=== PATIENT | male | born 1935 | race African-American/Black ===

== ENCOUNTER 2023-07-10 12:47 | Inpatient (IN) | payer MEDICARE ==
[~2023-07-10] VITALS: Ht 180.3 cm; Wt 83.0 kg
[2023-07-10 13:40] LABS: BASOPHILS % 0.8 % (0.0-2.0); EOSINOPHILS % 3.1 % (0.0-5.0); HEMATOCRIT. 39.9 % (42.0-52.0); HEMOGLOBIN. 13.5 g/dL (14.0-18.0); LYMPHOCYTES % 16.7 % (20.0-50.0); MEAN CORPUSCULAR HEMOGLOBIN 31.9 pg (28.0-32.0); MEAN CORPUSCULAR HGB CONC 33.8 g/dL (31.0-37.0); MEAN CORPUSCULAR VOLUME 94.4 fL (80.0-94.0); MEAN PLATELET VOLUME 7.2 fl (7.4-10.4); MONOCYTES % 6.3 % (2.0-8.0); NEUTROPHILS % 73.1 % (40.0-76.0); PLATELET 264 x1000/uL (130-400); RED BLOOD CELL COUNT 4.22 mill/uL (4.7-6.1); RED CELL DISTRIBUTION WIDTH 14.2 % (11.6-14.6); WHITE BLOOD COUNT 4.7 x1000/uL (4.5-11.0)
[2023-07-10 13:55] LABS: PROTHROMBIN TIME 11.4 sec (9.6-11.0)
[2023-07-10 14:06] LABS: ALANINE AMINOTRANSFERASE 17 IU/L (10-49); ALBUMIN 4.3 g/dL (3.2-4.8); ASPARTATE AMINOTRANSFERASE 25 IU/L (<34); BILIRUBIN TOTAL 0.4 mg/dL (0.1-1.0); CALCIUM 9.1 mg/dL (8.7-10.4); CARBON DIOXIDE 26 mEq/L (21-32); CHLORIDE 107 mEq/L (98-107); CREATININE 0.9 mg/dL (0.6-1.3); GLUCOSE 119 mg/dL (70-105); POTASSIUM 3.5 mEq/L (3.5-5.1); PROTEIN TOTAL 7.6 g/dL (6.0-8.3); SODIUM 139 mEq/L (136-145); TROPONIN I HIGH SENSITIVITY 12 ng/L (3.0-53); UREA NITROGEN BLOOD 20 mg/dL (9-23)
[2023-07-10 16:00] VITALS: BP 146/75; PULSE 72; RESP 20; TEMP 97.4
[2023-07-10 16:23] LABS: TROPONIN I HIGH SENSITIVITY 14 ng/L (3.0-53)
[2023-07-10 17:22] VITALS: BP 144/81; PULSE 75; RESP 16; TEMP 97.9
[2023-07-10] MEDS ORDERED: HYDR25TA PO (17:49)
[2023-07-10] MEDS ORDERED: PHEN100C4 PO (17:49)
[2023-07-10] MEDS ORDERED: NIFE90TA60 PO (17:49)
[2023-07-10 20:00] VITALS: BP 145/78; PULSE 73; RESP 19; TEMP 97.9
[2023-07-10] MEDS ORDERED: ACETAMINOPHEN 325MG TABLET PO PRN (20:30)
[2023-07-10] MEDS ORDERED: IPRATROPIUM/ALBUTEROL 0.5-3(2.5)MG/3ML NEB HHN PRN (20:30)
[2023-07-10] MEDS ORDERED: HYDROCODONE/ACETAMINOPHEN 5/325MG TABLET PO PRN (20:30)
[2023-07-10] MEDS ORDERED: DOCUSATE SODIUM 100MG CAPSULE PO PRN (20:30)
[2023-07-10] MEDS ORDERED: ONDANSETRON HCL 4MG/2ML INJ IV PRN (20:30)
[2023-07-10] MEDS ORDERED: PHEN100C12 PO (20:37)
[2023-07-10] MEDS ORDERED: NALOXONE HCL 0.4MG/ML VIAL IV PRN (20:45)
[2023-07-10] MEDS: ENOXAPARIN 40MG/0.4ML SYR SUBCUT SCH (22:02)
[2023-07-10 23:57] LABS: CREATINE KINASE MB FRACTION 3.4 ng/mL (0.5-3.6)
[2023-07-11] VITALS: BP 152/83; PULSE 76; RESP 18; TEMP 97.9
[2023-07-11 04:00] VITALS: BP 147/78; PULSE 75; RESP 19; TEMP 98.2
[2023-07-11 08:00] LABS: CREATINE KINASE MB FRACTION 2.4 ng/mL (0.5-3.6)
[2023-07-11] MEDS: PHENYTOIN SODIUM EXTENDED 100MG CAPSULE PO SCH (08:27)
[2023-07-11] MEDS: HYDROCHLOROTHIAZIDE 25MG TABLET PO SCH (08:27)
[2023-07-11] MEDS: NIFEDIPINE XL 90MG TAB PO SCH (08:27)
[2023-07-11 08:34] VITALS: BP 146/81; PULSE 77; RESP 19; TEMP 98.4
[2023-07-11] MEDS ORDERED: PHENYTOIN SODIUM EXTENDED 100MG CAPSULE PO SCH (09:00)
[2023-07-11] MEDS: DEXAMETHASONE 4MG/ML 1ML VIAL IV SCH (12:00)
[2023-07-11 12:24] VITALS: BP 122/67; PULSE 70; RESP 18; TEMP 98.6
[2023-07-11 15:49] VITALS: BP 124/68; PULSE 86; RESP 20; TEMP 98.3
[2023-07-11 16:19] LABS: BASOPHILS % 1.2 % (0.0-2.0); HEMATOCRIT. 37.5 % (42.0-52.0); HEMOGLOBIN. 12.9 g/dL (14.0-18.0); LYMPHOCYTES % 21.2 % (20.0-50.0); MEAN CORPUSCULAR HEMOGLOBIN 32.3 pg (28.0-32.0); MEAN CORPUSCULAR HGB CONC 34.5 g/dL (31.0-37.0); MEAN CORPUSCULAR VOLUME 93.7 fL (80.0-94.0); MEAN PLATELET VOLUME 7.6 fl (7.4-10.4); NEUTROPHILS % 67.6 % (40.0-76.0); PLATELET 258 x1000/uL (130-400); RED CELL DISTRIBUTION WIDTH 14.3 % (11.6-14.6); WHITE BLOOD COUNT 3.4 x1000/uL (4.5-11.0)
[2023-07-11 16:27] LABS: ALANINE AMINOTRANSFERASE 14 IU/L (10-49); ALBUMIN 3.9 g/dL (3.2-4.8); ASPARTATE AMINOTRANSFERASE 20 IU/L (<34); BILIRUBIN TOTAL 0.3 mg/dL (0.1-1.0); CALCIUM 8.7 mg/dL (8.7-10.4); CARBON DIOXIDE 24 mEq/L (21-32); CHLORIDE 105 mEq/L (98-107); CHOLESTEROL 185 mg/dL (<200); CREATININE 0.9 mg/dL (0.6-1.3); GLUCOSE 119 mg/dL (70-105); HDL CHOLESTEROL 53 mg/dL (>55); LDL CHOLESTEROL 119 mg/dL (5-100); POTASSIUM 3.5 mEq/L (3.5-5.1); SODIUM 139 mEq/L (136-145); TRIGLYCERIDE 87 mg/dL (0-150); UREA NITROGEN BLOOD 18 mg/dL (9-23)
[2023-07-11 20:00] VITALS: BP 134/68; PULSE 79; RESP 18; TEMP 98.2
[2023-07-11] MEDS: ATORVASTATIN CALCIUM 40MG TABLET PO SCH (20:44)
[2023-07-12] VITALS: BP 130/80; PULSE 76; RESP 18; TEMP 98
[2023-07-12 04:00] VITALS: BP 130/76; PULSE 71; RESP 18; TEMP 97.9
[2023-07-12 06:05] LABS: *AMPHETAMINES SCREEN URINE NEGATIVE (NEGATIVE); *BARBITURATES SCREEN URINE NEGATIVE (NEGATIVE); *BENZODIAZEPINES SCREEN URINE NEGATIVE (NEGATIVE); *COCAINE SCREEN URINE NEGATIVE (NEGATIVE); CANNABINOID URINE SCREEN NEGATIVE (NEGATIVE); ECSTASY MDMA SCREEN URINE NEGATIVE (NEGATIVE); METHADONE URINE SCREEN Neg (NEGATIVE); OPIATES URINE SCREEN NEGATIVE (NEGATIVE); PHENCYCLIDINE URINE SCREEN NEGATIVE (NEGATIVE)
[2023-07-12 06:16] LABS: CLARITY URINE CLEAR (CLEAR); COLOR URINE YELLOW (YELLOW); GLUCOSE URINE NEGATIVE (NEGATIVE); KETONES URINE NEGATIVE (NEGATIVE); LEUKOCYTE ESTERASE URINE 3+ (NEGATIVE); NITRITE URINE NEGATIVE (NEGATIVE); OCCULT BLOOD URINE TRACE (NEGATIVE); PROTEIN URINE NEGATIVE (NEGATIVE); SPECIFIC GRAVITY URINE 1.009 (1.005-1.030); UROBILINOGEN URINE 0.2 E.U./dL (0.2-1.0)
[2023-07-12 07:02] LABS: BASOPHILS % 0.8 % (0.0-2.0); EOSINOPHILS % 1.6 % (0.0-5.0); HEMATOCRIT. 35.7 % (42.0-52.0); HEMOGLOBIN. 12.5 g/dL (14.0-18.0); LYMPHOCYTES % 31.1 % (20.0-50.0); MEAN CORPUSCULAR HEMOGLOBIN 32.4 pg (28.0-32.0); MEAN CORPUSCULAR VOLUME 92.7 fL (80.0-94.0); MEAN PLATELET VOLUME 7.5 fl (7.4-10.4); MONOCYTES % 7.3 % (2.0-8.0); NEUTROPHILS % 59.2 % (40.0-76.0); PLATELET 262 x1000/uL (130-400); RED BLOOD CELL COUNT 3.86 mill/uL (4.7-6.1)
[2023-07-12 07:09] LABS: BACTERIA URINE 3+; SQUAMOUS EPITHELIAL CELL URINE NONE SEEN /lpf (RARE/1+); WBC URINE TNTC /hpf (0-2)
[2023-07-12 07:28] LABS: CALCIUM 8.6 mg/dL (8.7-10.4); CARBON DIOXIDE 24 mEq/L (21-32); CHLORIDE 108 mEq/L (98-107); CREATININE 0.8 mg/dL (0.6-1.3); GLUCOSE 69 mg/dL (70-105); POTASSIUM 3.5 mEq/L (3.5-5.1); SODIUM 139 mEq/L (136-145); UREA NITROGEN BLOOD 19 mg/dL (9-23)
[2023-07-12 08:13] VITALS: BP 130/78; PULSE 70; RESP 18; TEMP 98.5
[2023-07-12 12:00] VITALS: BP 122/74; PULSE 82; RESP 19; TEMP 98.7
[2023-07-12] MEDS: CEFTRIAXONE 1GM/50ML 50 ML IV SCH (14:47)
[2023-07-12 16:04] VITALS: BP 115/63; PULSE 77; RESP 18; TEMP 98.2
[2023-07-12] MEDS: DEXAMETHASONE 4MG/ML 1ML VIAL IV SCH (16:22)
[2023-07-12 20:49] VITALS: BP 120/63; PULSE 90; RESP 19; TEMP 97.5
[2023-07-13 00:42] VITALS: BP 121/70; PULSE 76; RESP 17; TEMP 97.5
[2023-07-13 04:00] VITALS: BP 133/71; PULSE 78; RESP 16; TEMP 97.8
[2023-07-13 08:00] VITALS: BP 143/77; PULSE 74; RESP 18; TEMP 96.9
[2023-07-13 12:00] VITALS: BP 129/69; PULSE 74; RESP 18; TEMP 97
[2023-07-13 16:00] VITALS: BP 115/68; PULSE 74; RESP 18; TEMP 97.5
[2023-07-13 20:00] VITALS: BP 132/64; PULSE 83; RESP 20; TEMP 99.3
[2023-07-14] VITALS: BP 134/72; PULSE 84; RESP 20; TEMP 98.5
[2023-07-14 04:00] VITALS: BP 143/77; PULSE 71; RESP 20; TEMP 98.2
[2023-07-14 08:00] VITALS: BP 138/85; PULSE 70; RESP 18; TEMP 97.2
[2023-07-14 12:00] VITALS: BP 118/57; PULSE 66; RESP 18; TEMP 97
[2023-07-14 16:00] VITALS: BP 114/56; PULSE 69; RESP 18; TEMP 97.6
[2023-07-14 20:00] VITALS: BP 115/61; PULSE 71; RESP 18; TEMP 98.1
[2023-07-15] VITALS: BP 132/59; PULSE 75; RESP 18; TEMP 98.1
[2023-07-15 04:00] VITALS: BP 153/66; PULSE 79; RESP 18; TEMP 98.1
[2023-07-15 08:00] VITALS: BP 171/98; PULSE 83; PULSE 84; RESP 20; TEMP 97.8
[2023-07-15] MEDS: CLONIDINE 0.1MG TABLET PO PRN (08:26)
[2023-07-15 12:00] VITALS: BP 102/62; PULSE 82; RESP 18; TEMP 98
[2023-07-15] MEDS: HYDRALAZINE HCL 25MG TABLET PO SCH (13:09)
[2023-07-15 16:00] VITALS: BP 109/57; PULSE 78; RESP 18; TEMP 97.8
[2023-07-15 16:09] LABS: BASOPHILS % 0.8 % (0.0-2.0); EOSINOPHILS % 1.8 % (0.0-5.0); HEMATOCRIT. 36.4 % (42.0-52.0); HEMOGLOBIN. 12.5 g/dL (14.0-18.0); LYMPHOCYTES % 20.5 % (20.0-50.0); MEAN CORPUSCULAR HEMOGLOBIN 32.3 pg (28.0-32.0); MEAN CORPUSCULAR HGB CONC 34.4 g/dL (31.0-37.0); MEAN CORPUSCULAR VOLUME 93.8 fL (80.0-94.0); MEAN PLATELET VOLUME 7.7 fl (7.4-10.4); MONOCYTES % 9.2 % (2.0-8.0); NEUTROPHILS % 67.7 % (40.0-76.0); PLATELET 284 x1000/uL (130-400); RED BLOOD CELL COUNT 3.87 mill/uL (4.7-6.1); RED CELL DISTRIBUTION WIDTH 14.2 % (11.6-14.6); WHITE BLOOD COUNT 5.3 x1000/uL (4.5-11.0)
[2023-07-15 16:29] LABS: CALCIUM 8.5 mg/dL (8.7-10.4); CARBON DIOXIDE 25 mEq/L (21-32); CHLORIDE 105 mEq/L (98-107); CREATININE 0.8 mg/dL (0.6-1.3); GLUCOSE 105 mg/dL (70-105); POTASSIUM 3.6 mEq/L (3.5-5.1); SODIUM 138 mEq/L (136-145); UREA NITROGEN BLOOD 19 mg/dL (9-23)
[2023-07-15] MEDS: CEFEPIME 1GM/50ML 50 ML IV SCH (17:26)
[2023-07-15 20:00] VITALS: BP 108/57; PULSE 82; RESP 19; TEMP 97.3
[2023-07-16] VITALS (7 sets, daily range): BP systolic 93–131; BP diastolic 55–73; PULSE 72–82; RESP 18–19; TEMP 97.4–98.4
[2023-07-16 07:02] LABS: EOSINOPHILS % 1.9 % (0.0-5.0); HEMATOCRIT. 36.5 % (42.0-52.0); HEMOGLOBIN. 12.8 g/dL (14.0-18.0); LYMPHOCYTES % 21.4 % (20.0-50.0); MEAN CORPUSCULAR HEMOGLOBIN 32.5 pg (28.0-32.0); MEAN CORPUSCULAR HGB CONC 34.9 g/dL (31.0-37.0); MEAN PLATELET VOLUME 7.9 fl (7.4-10.4); MONOCYTES % 8.7 % (2.0-8.0); PLATELET 249 x1000/uL (130-400); RED BLOOD CELL COUNT 3.93 mill/uL (4.7-6.1); RED CELL DISTRIBUTION WIDTH 14.1 % (11.6-14.6); WHITE BLOOD COUNT 5.2 x1000/uL (4.5-11.0)
[2023-07-16 08:36] LABS: CALCIUM 8.6 mg/dL (8.7-10.4); CARBON DIOXIDE 21 mEq/L (21-32); CHLORIDE 107 mEq/L (98-107); CREATININE 0.7 mg/dL (0.6-1.3); GLUCOSE 75 mg/dL (70-105); POTASSIUM 3.6 mEq/L (3.5-5.1); SODIUM 138 mEq/L (136-145); UREA NITROGEN BLOOD 18 mg/dL (9-23)
[2023-07-17] VITALS: BP 117/59; PULSE 77; RESP 20; TEMP 97.6
[2023-07-17 04:00] VITALS: BP 128/72; PULSE 78; RESP 18; TEMP 97.7
[2023-07-17 08:00] VITALS: BP 145/81; PULSE 87; RESP 19; TEMP 98
[2023-07-17 12:00] VITALS: BP 128/67; PULSE 91; RESP 19; TEMP 97.8
[2023-07-17 16:00] VITALS: BP 122/69; PULSE 86; RESP 19; TEMP 97.9
[2023-07-17 20:00] VITALS: BP 112/66; PULSE 95; RESP 18; TEMP 97.9
[2023-07-18] VITALS: BP 114/59; PULSE 101; RESP 18; TEMP 98.1
[2023-07-18 04:00] VITALS: BP 130/70; PULSE 97; RESP 18; TEMP 97.5
[2023-07-18 08:00] VITALS: BP 120/59; PULSE 89; RESP 19; TEMP 98.1
[2023-07-18 12:00] VITALS: BP 112/65; PULSE 93; RESP 20; TEMP 98.7
[2023-07-18 16:00] VITALS: BP 110/59; PULSE 86; RESP 20; TEMP 98.2
[2023-07-18 20:00] VITALS: BP 118/63; PULSE 75; RESP 18; TEMP 98.1
[2023-07-19] VITALS: BP 145/77; PULSE 63; RESP 18; TEMP 98.1
[2023-07-19 04:00] VITALS: BP 130/70; PULSE 90; RESP 18; TEMP 98.4
[2023-07-19 08:00] VITALS: BP 135/76; PULSE 78; RESP 19; TEMP 98.1
[2023-07-19 12:00] VITALS: BP 106/76; PULSE 81; RESP 20; TEMP 98.3
[2023-07-19 16:00] VITALS: BP 136/65; PULSE 76; RESP 20; TEMP 97.9
[2023-07-19 17:02] VITALS: BP 135/76; PULSE 81; TEMP 98.3; O2SAT 99
== END 2023-07-19 18:30 | DRG 551 ==
LOC: ER 12:47 → EDBEDREQTM 15:21 → EDBEDREQ 15:21 → EDBEDREQTM 15:58 → EDBEDREQSVC 15:58 → 7WST 18:15 → 6EST 07-17 05:11
PROVIDERS: ADMIT Internal Medicine; ATTEND Internal Medicine
DX: M48.02 Spinal stenosis, cervical region (principal); L89.153 Pressure ulcer of sacral region, stage 3; N39.0 Urinary tract infection, site not specified; J98.11 Atelectasis; I67.82 Cerebral ischemia; D64.9 Anemia, unspecified; E78.5 Hyperlipidemia, unspecified; R56.9 Unspecified convulsions; Z96.659 Presence of unspecified artificial knee joint; I10 Essential (primary) hypertension; W18.30XA Fall on same level, unspecified, initial encounter; Y92.002 Bathroom of unspecified non-institutional (private) residence as the place of occurrence of the external cause; Y93.89 Activity, other specified; R74.01 Elevation of levels of liver transaminase levels
CPT/HCPCS: 36415; 70551; 71045; 72141; 80048; 80053; 80061; 80305; 81003; 82550; 82553; 82962; 83036; 84484; 85025; 87077; 87186; 93005; 93970; 97110; 97162; 97530; 99291; A6261; J0692; J0696; J1100; J1650